=== PATIENT | female | born 1985 | race Caucasian/White ===

== ENCOUNTER 2016-07-29 02:54 | Emergency (ER) | payer OTHER ==
[2016-07-29 03:00] VITALS: RESP 18; TEMP 97.7
[2016-07-29] MEDS ORDERED: ONDANSETRON 4 MG/2 ML VIAL IVP STA (05:00)
--- NOTE | 2016-07-29 06:08 | ED ---
Alcohol HPI - General Chief Complaint: Alcohol Stated Complaint: ETOH Time Seen by Provider: 07/29/16 03:00 Source: patient Mode of arrival: EMS Limitations: altered mental status - History of Present Illness Initial Comments: This patient is a 30-year-old woman brought to be evaluated after she passed out at a bar. The patient's does appear intoxicated and only getting minimal history. She is able to deny having a fall. She denies headache, chest pain. Patient does admit vomiting MD Complaint: alcohol intoxication Associated Symptoms: vomiting - Related Data Allergies Allergy/AdvReac Type Severity Reaction Status Date / Time Unable to Assess Allergy Verified 07/29/16 03:01 Review of Systems ROS Statement: Those systems with pertinent positive or pertinent negative responses have been documented in the HPI. ROS Other: All systems not noted in ROS Statement are negative. Limitations: ROS unobtainable due to patients medical condition Respiratory: Denies: dyspnea Cardiovascular: Denies: chest pain Gastrointestinal: Reports: vomiting Musculoskeletal: Denies: back pain Neurological: Denies: headache Past Medical History Past Medical History: Unable to Obtain History of Any Multi-Drug Resistant Organisms: Unobtainable Past Surgical History: Unable to Obtain Past Psychological History: Unable to Obtain Smoking Status: Current every day smoker Past Alcohol Use History: Abuse Past Drug Use History: None Reported General Exam Limitations: altered mental status General appearance: appears intoxicated Head exam: Present: atraumatic, normocephalic, normal inspection Eye exam: Present: normal appearance. Absent: scleral icterus, conjunctival injection Neck exam: Present: normal inspection, full ROM. Absent: tenderness, meningismus Respiratory exam: Present: normal lung sounds bilaterally. Absent: respiratory distress, wheezes, rales, rhonchi, stridor Cardiovascular Exam: Present: regular rate, normal rhythm, normal heart sounds. Absent: systolic murmur, diastolic murmur, rubs, gallop GI/Abdominal exam: Present: soft. Absent: distended, tenderness, guarding, rebound, mass Extremities exam: Present: normal inspection, normal capillary refill. Absent: pedal edema, calf tenderness Back exam: Present: normal inspection. Absent: CVA tenderness (R), CVA tenderness (L) Neurological exam: Present: alert, reflexes normal. Absent: motor sensory deficit Skin exam: Present: warm, dry, intact, normal color. Absent: rash Course Vital Signs 07/29/16 07/29/16 02:55 09:42 Temperature 97.7 F Pulse Rate 94 99 Respiratory 18 18 Rate Blood Pressure 129/83 153/85 O2 Sat by Pulse 97 100 Oximetry Disposition Clinical Impression: Alcoholic intoxication Disposition: HOME SELF-CARE Condition: Good Instructions: Alcohol Intoxication (ED) Referrals: None,Stated [Primary Care Provider] - 1-2 days
[2016-07-29 09:43] VITALS: BP 153/85; PULSE 99
== END 2016-07-29 09:43 | disposition home or self-care (01) ==
LOC: EC 02:54
DX: F10.129 Alcohol abuse with intoxication, unspecified (principal); F17.200 Nicotine dependence, unspecified, uncomplicated
CPT/HCPCS: 99284; 96374; J2405

== ENCOUNTER → 2016-11-21 | Outpatient (CLI) | payer OTHER ==
--- NOTE | 2016-11-21 10:57 | MR ---
EXAMINATION TYPE: MR lumbar spine wo con DATE OF EXAM: 11/21/2016 COMPARISON: MRI lumbar spine August 23, 2012. HISTORY: Lumbago per order. Center and right-sided back pain with Right-sided buttocks and thigh pain per patient. TECHNIQUE: Multiplanar, multisequence imaging of the lumbar spine is performed without IV contrast. FINDINGS: Sagittal images of the lumbar spine redemonstrate multilevel Schmorl nodes. Alignment is sa tisfactory. Multilevel disc desiccation with mild multilevel disc space narrowing is redemonstrated. No significant new posterior disc herniations are seen on sagittal images. The conus medullaris remai ns normal in position and signal ending at superior L1 level. The bone marrow signal intensity is ov erall heterogeneous. There is mild multilevel anterior spurring redemonstrated. Axial images at the T12-L1 level shows mild broad disc bulge mildly effacing anterior thecal sac on a xial image 28. Bilateral neural foramina are patent. No significant change from prior study is seen. Axial images at L1-L2 level show moderate broad disc bulge effacing anterior thecal sac and axial elissa ge 23. Bilateral neural foramina remain patent. No significant change from prior study is seen. Axial images at L2-L3 level show broad disc bulge with right foraminal/lateral paracentral disc protr usion component on axial image 18. There is effacement of the anterior thecal sac. There is mild to m oderate right-sided anterior inferior neural foraminal narrowing at this level identified. Axial images at L3-L4 level show broad disc bulge but spinal canal is preserved and bilateral neural foramina are patent. Axial images at L4-L5 level show broad disc bulge with right lateral disc protrusion component on axi al image 8. There is moderate right-sided inferior neural foraminal narrowing. Left-sided neural fora men is patent. No significant change from prior study is seen. Spinal canal is preserved. Axial images at L5-S1 level are felt within normal limits. There is prominent renal pelvises bilaterally without calyceal dilatation suggesting extrarenal pelvi ses, right more prominent than left. IMPRESSION: Multilevel degenerative changes in the lumbar spine as detailed above with some progressi on in findings from 2013 MRI noted.
== END | disposition home or self-care (01) ==
LOC: RADMRIMAIN 09:54
PROVIDERS: ATTEND Nurse Practitioner Acute Care
DX: M47.816 Spondylosis without myelopathy or radiculopathy, lumbar region (principal)
CPT/HCPCS: 72148

== ENCOUNTER → 2021-01-11 | Outpatient (CLI) | payer OTHER ==
--- NOTE | 2021-01-11 14:00 | NM ---
EXAMINATION TYPE: NM bone 3 phase DATE OF EXAM: 01/11/2021 COMPARISON: AP pelvis 12/23/2020 HISTORY: T84.84X, Z66.92 Triple phase bone scintigraphy was performed following the injection of 25.2 mCi Tc 99m MDP. Immedia te images and 5 hours post injection images acquired. FINDINGS: Blood flow and blood pool activity show photopenic areas consistent with patient's hip arthroplasties . Delayed imaging also shows photopenic areas corresponding to patient's hip prosthetics. Soft tissue uptake is normal. There is uptake noted in the mid lumbar spine which is bandlike. IMPRESSION: Postop changes. Possible osteoporotic compression fracture L3 region.
[2021-01-11 15:40] LABS: Basophils # (A) 0.1 k/uL (0-0.2); Basophils % (A) 1 %; Eosinophils # (A) 0.1 k/uL (0-0.7); Eosinophils % (A) 1 %; HCT 44.6 % (34.0-46.0); HGB 14.4 gm/dL (11.4-16.0); Lymphocytes # (A) 3.5 k/uL (1.0-4.8); Lymphocytes % (A) 39 %; MCHC 32.3 g/dL (31.0-37.0); MCV 99.4 fL (80.0-100.0); Mean Platelet Volume 7.7; Monocytes # (A) 0.8 k/uL (0-1.0); Monocytes % (A) 9 %; Neutrophils # (A) 4.2 k/uL (1.3-7.7); Neutrophils % (A) 46 %; Platelet Count 343 k/uL (150-450); RBC 4.49 m/uL (3.80-5.40); RDW 11.8 % (11.5-15.5)
[2021-01-11 19:11] LABS: Erythrocyte Sedimentation Rate 2 mm/hr (0-20)
== END | disposition home or self-care (01) ==
LOC: RADNMMAIN 07:42
PROVIDERS: ATTEND Orthopaedic Surgery
DX: T84.84XA Pain due to internal orthopedic prosthetic devices, implants and grafts, initial encounter (principal); Z96.649 Presence of unspecified artificial hip joint
CPT/HCPCS: 85652; 85025; 86140; 78315; A9503

== ENCOUNTER → 2023-02-28 | Outpatient (CLI) | payer OTHER ==
--- NOTE | 2023-03-01 22:35 | MM ---
Reason for Exam: Screening (asymptomatic). Patient History: Menarche at age 16. First Full-Term at age 17. Premenopausal. Currently using Hormonal Contraceptives, starting at age 30. Risk Values: Elle 5 year model risk: 0.3%. NCI Lifetime model risk: 6.8%. Tissue Density: The breast tissue is heterogeneously dense. This may lower the sensitivity of mammography. Findings: Analyzed By CAD. On the right, there is an area of subareolar asymmetric density on the cc view that may represent superimposition shadow but further evaluation is recommended. On the left, in the upper outer quadrant, there are grouped microcalcifications for which further magnification views are recommended. On the left, MLO view located centrally and at a posterior depth, there is an asymmetric density for which further evaluation is recommended. Otherwise, no other discrete abnormality is seen. Overall Assessment: Incomplete: need additional imaging evaluation, BI-RAD 0 Management: Special View Mammogram of both breasts. Diagnostic Breast Ultrasound of both breasts. 1. Additional views right breast to include spot 3-D CC, 3-D CC rolled, and 3-D lateral views. 2. Additional views left breast to include mag CC, mag ML, and 3-D ML views of the upper outer quadrant calcifications. 3. Additional views left breast include spot 3-D MLO for the posterior central asymmetric density. 4. Targeted ultrasound of either breast for any persisting abnormality. . [facility] will attempt to contact patient to return for supplemental views and ultrasound if indicated. Electronically signed and approved by: Nadya Rich M.D. Radiologist
== END | disposition home or self-care (01) ==
LOC: RADMAMWWP 06:58
PROVIDERS: ATTEND Obstetrics & Gynecology
DX: Z12.31 Encounter for screening mammogram for malignant neoplasm of breast (principal)
CPT/HCPCS: 77067

== ENCOUNTER → 2023-04-12 | Outpatient (CLI) | payer OTHER ==
--- NOTE | 2023-04-12 11:25 | MM ---
Reason for Exam: Additional evaluation requested from abnormal screening. Last screening mammogram was performed 2 month(s) ago. Patient History: Menarche at age 16. First Full-Term at age 17. Premenopausal. Patient has history of breast feeding. Currently using Hormonal Contraceptives, starting at age 30. Last menstrual period: 03/28/2023 Risk Values: Elle 5 year model risk: 0.3%. NCI Lifetime model risk: 6.8%. Prior Study Comparison: 02/28/2023 Bilateral MG screening mammo w CAD, [facility]. Tissue Density: The breast tissue is heterogeneously dense. This may lower the sensitivity of mammography. Findings: Analyzed By CAD. Right: The questioned subareolar asymmetric density does not persist on additional views. Findings compatible with superimposition shadow. Left: The 2:00 grouped left breast microcalcifications at a middle depth seen to be comprised of punctate as well as partially layering calcifications on the true lateral view. This favors a benign etiology. Six-month follow-up recommended. Overall Assessment: Probably benign, BI-RAD 3 Management: Diagnostic Mammogram of the left breast in 6 months. . Results were given to the patient verbally at the time of exam. Patient should continue monthly self-breast exams. A clinical breast exam by your physician is recommended on an annual basis. This exam should not preclude additional follow-up of suspicious palpable abnormalities. Note on Elle scores and lifetime risk: 1. A Elle score greater than 3% is considered moderate risk. If this is the case, consider specialist referral to assess eligibility for a risk reducing agent. 2. If overall lifetime risk for the development of breast cancer is 20% or higher, the patient may qualify for future screening with alternating mammogram and breast MRI. Electronically signed and approved by: Nadya Rich M.D. Radiologist
== END | disposition home or self-care (01) ==
LOC: RADMAMWWP 10:20
PROVIDERS: ATTEND Obstetrics & Gynecology
DX: R92.333 Mammographic heterogeneous density, bilateral breasts (principal)
CPT/HCPCS: 77066; G0279; 77062

== ENCOUNTER 2024-01-19 18:23 | Inpatient (IN) | payer BC, OTHER ==
[2024-01-19] MEDS ORDERED: METHYLERGONOVINE 0.2 MG/ML 1 ML AMP IM PRN (19:09)
[2024-01-19] MEDS ORDERED: CARBOPROST TROMETHAMINE 250 MCG/ML 1 ML AMP IM PRN (19:09)
[2024-01-19] MEDS ORDERED: TRANEXAMIC 1,000 MG/100ML-NACL 1,000 MG in EMPTY BAG 1 BAG IV PRN (19:09)
[2024-01-19] MEDS ORDERED: miSOPROStoL 200 MCG TAB PO PRN (19:09)
[2024-01-19] MEDS ORDERED: OXYTOCIN 10 UNIT/ML 1 ML VIAL IM PRN (19:09)
[2024-01-19] MEDS: LACTATED RINGERS 1,000 ML IV ONE (19:26)
[2024-01-19] MEDS: CITRIC ACID-SODIUM CITRATE 15 ML CUP PO ONE (19:29)
[2024-01-19 19:45] LABS: ALT 14 U/L (4-34); AST 32 U/L (14-36); African American GFR (CKD) >90 (>60 ml/min/1.73 sqM); Blood Urea Nitrogen 10 mg/dL (7-17); LDH 234 U/L (120-246); Non-African American GFR(CKD) >90 (>60 ml/min/1.73 sqM); Uric Acid 4.6 mg/dL (3.7-7.4)
[2024-01-19 19:55] LABS: Basophils # (A) 0.1 k/uL (0-0.2); Basophils % (A) 1 %; Eosinophils % (A) 1 %; HCT 40.1 % (34.0-46.0); HGB 12.9 gm/dL (11.4-16.0); Lymphocytes # (A) 3.3 k/uL (1.0-4.8); Lymphocytes % (A) 37 %; MCH 28.1 pg (25.0-35.0); MCV 87.6 fL (80.0-100.0); Mean Platelet Volume 9.6; Monocytes # (A) 0.7 k/uL (0-1.0); Monocytes % (A) 8 %; Neutrophils # (A) 4.7 k/uL (1.3-7.7); Neutrophils % (A) 52 %; Platelet Count 426 k/uL (150-450); RBC 4.58 m/uL (3.80-5.40); RDW 15.1 % (11.5-15.5)
[2024-01-19] MEDS ORDERED: MORPHINE SULFATE (PF) 0.3 MG/0.3 ML SYR ONE (19:56)
[2024-01-19] MEDS ORDERED: NALBUPHINE 10 MG/ML (10 ML MDV) ONE (19:56)
[2024-01-19] MEDS ORDERED: KETOROLAC 15 MG/ML 1 ML VIAL ONE (19:56)
[2024-01-19] MEDS ORDERED: OXYTOCIN 30 UNITS/500 ML NS BAG IV ONE (19:56)
[2024-01-19] MEDS ORDERED: ONDANSETRON 4 MG/2 ML VIAL ONE (19:56)
[2024-01-19 19:58] LABS: Creatinine,Urine Random 86.8 mg/dL; Protein/Creatinine Ratio,Urine 0.196
[2024-01-19 20:06] LABS: Appearance,Urine Clear (Clear); Bilirubin,Urine Negative (Negative); Blood,Urine Negative (Negative); Color,Urine Light Yellow; Glucose,Urine (UA) Negative (Negative); Ketones,Urine Negative (Negative); Leukocyte Esterase,Urine Negative (Negative); Nitrite,Urine Negative (Negative); PH, Urine 6.5 (5.0-8.0); Protein,Urine Negative (Negative); Specific Gravity,Urine 1.016 (1.001-1.035); Urobilinogen,Urine <2.0 mg/dL (<2.0)
[2024-01-19] MEDS ORDERED: diphenhydrAMINE 50 MG CAP PO PRN (21:37)
[2024-01-19] MEDS ORDERED: METOCLOPRAMIDE 5 MG/ML 2 ML VIAL IVP PRN (21:37)
[2024-01-19] MEDS ORDERED: diphenhydrAMINE 25 MG CAP PO PRN (21:37)
[2024-01-19] MEDS ORDERED: NALOXONE 0.4 MG/ML 1 ML VIAL IV PRN ×2 (21:37→23:19)
[2024-01-19] MEDS ORDERED: ONDANSETRON 4 MG/2 ML VIAL IVP PRN (21:37)
[2024-01-19] MEDS ORDERED: ZOLPIDEM 5 MG TAB PO PRN (21:37)
[2024-01-19] MEDS ORDERED: diphenhydrAMINE 50 MG/ML 1 ML VIAL IVP PRN ×2 (21:37)
[2024-01-19] MEDS: OXYTOCIN 30 UNITS/500 ML NS 30 UNIT in SALINE 1 500ML.BAG IV SCH (22:15)
[2024-01-19] MEDS: LACTATED RINGERS 1,000 ML IV SCH (23:11)
[2024-01-19] MEDS: ACETAMINOPHEN TAB 500 MG TAB PO SCH (23:30)
[2024-01-20] MEDS: KETOROLAC 15 MG/ML 1 ML VIAL IVP SCH (03:00)
[2024-01-20] MEDS: MEASLES-MUMPS-RUBELLA VACC/PF 12,500 UNIT/0.5 ML VIAL SQ ONE (04:30)
[2024-01-20 06:41] LABS: Basophils # (A) 0.1 k/uL (0-0.2); Basophils % (A) 1 %; Eosinophils # (A) 0.1 k/uL (0-0.7); Eosinophils % (A) 1 %; HCT 35.2 % (34.0-46.0); HGB 11.4 gm/dL (11.4-16.0); Lymphocytes # (A) 3.4 k/uL (1.0-4.8); Lymphocytes % (A) 27 %; MCH 28.4 pg (25.0-35.0); MCHC 32.3 g/dL (31.0-37.0); Mean Platelet Volume 9.9; Monocytes % (A) 8 %; Neutrophils # (A) 7.8 k/uL (1.3-7.7); Neutrophils % (A) 62 %; Platelet Count 365 k/uL (150-450); RDW 15.3 % (11.5-15.5); WBC 12.6 k/uL (3.8-10.6)
--- NOTE | 2024-01-20 09:01 | P.HPOB ---
History of Present Illness H&P Date: 01/19/24 Chief Complaint: SROM 38-year-old presents at 39 weeks and 2 days with spontaneous rupture of membranes. She is a previous section and plans a repeat. Her blood pressures are elevated upon admission so we will run pre-eclampsia labs. Review of Systems All systems: negative Constitutional: Denies chills, Denies fever Eyes: denies blurred vision, denies pain Ears, nose, mouth and throat: Denies headache, Denies sore throat Cardiovascular: Denies chest pain, Denies shortness of breath Respiratory: Denies cough Gastrointestinal: Denies abdominal pain, Denies diarrhea, Denies nausea, Denies vomiting Genitourinary: Denies dysuria, Denies hematuria Musculoskeletal: Denies myalgias Integumentary: Denies pruritus, Denies rash Neurological: Denies numbness, Denies weakness Psychiatric: Denies anxiety, Denies depression Endocrine: Denies fatigue, Denies weight change Past Medical History Past Medical History: Unable to Obtain Additional Past Medical History / Comment(s): autoimmune hemolitic anemia, immune thrombocytopenia, interstitial\l lung disease, osteronecrosis, leg perthes disease, chronic arrythmia, RA History of Any Multi-Drug Resistant Organisms: None Reported Past Surgical History: Section, Cholecystectomy Additional Past Surgical History / Comment(s): spleenectomy, glynn hip replacement, D&C, lung biopsies and chest tube, Past Anesthesia/Blood Transfusion Reactions: No Reported Reaction Past Psychological History: ADD/ADHD Smoking Status: Former smoker, Never smoker Past Alcohol Use History: Abuse Past Drug Use History: None Reported - Past Family History Mother Family Medical History: No Reported History Additional Family Medical History / Comment(s): pt was adopted, unknown family hx Medications and Allergies Home Medications Medication Instructions Recorded Confirmed Type No Known Home Medications 01/19/24 01/19/24 History Allergies Allergy/AdvReac Type Severity Reaction Status Date / Time cyclophosphamide Allergy Dyspnea Verified 01/19/24 18:39 [From Cytoxan] Exam Osteopathic Statement: *. No significant issues noted on an osteopathic structural exam other than those noted in the History and Physical/Consult. Vital Signs Temp Pulse Resp BP Pulse Ox 01/20/24 04:13 97 01/20/24 04:00 98.4 F 66 16 152/98 97 01/20/24 02:19 17 01/20/24 00:19 17 97 01/20/24 00:05 99.1 F 82 17 142/85 97 01/19/24 23:19 87 17 97 01/19/24 22:48 98.4 F 84 17 146/90 84 L 01/19/24 22:33 74 17 143/87 97 01/19/24 22:18 68 17 154/84 96 01/19/24 22:03 97.8 F 17 144/84 97 01/19/24 21:48 81 17 158/88 98 01/19/24 21:37 97.9 F 90 18 164/105 98 01/19/24 21:33 73 17 128/86 01/19/24 21:18 77 17 132/88 97 01/19/24 21:03 78 17 129/87 98 01/19/24 20:48 97.6 F 83 17 142/85 97 01/19/24 19:14 97.4 F L 86 17 160/105 100 Intake and Output 01/19/24 01/20/24 01/20/24 22:59 06:59 14:59 Intake Total 900 Output Total 806 500 Balance 94 -500 Intake: IV 900 Output: Urine 100 500 Uretheral (Blank) 100 Output, Quantitative 706 Blood Loss Other: Voiding Method Indwelling Catheter Indwelling Catheter Weight 78.018 kg Heart: Regular rate and rhythm Lungs: Clear to auscultation bilaterally Abdomen: Soft, nontender Extremities: Negative Homans sign Results Result Diagrams: 01/20/24 05:36 01/19/24 19:25 Abnormal Lab Results - Last 24 Hours (Table) 01/19/24 01/20/24 Range/Units 19:25 05:36 WBC 12.6 H (3.8-10.6) k/uL Neutrophils # 7.8 H (1.3-7.7) k/uL Creatinine 0.48 L (0.52-1.04) mg/dL Assessment and Plan (1) Spontaneous rupture of amniotic membranes Current Visit: Yes Status: Acute Code(s): [id number] - SNOMED Code(s): 137524272 (2) Previous section Current Visit: Yes Status: Acute Code(s): Z98.891 - HISTORY OF UTERINE SCAR FROM PREVIOUS SURGERY SNOMED Code(s): 428518187 (3) Gestational hypertension Current Visit: Yes Status: Acute Code(s): O13.9 - GESTATIONAL HTN W/O SIGNIFICANT PROTEINURIA, UNSP TRIMESTER SNOMED Code(s): 55814642 Plan: 1. repeat low transverse 2. pre-eclampsia workup
--- NOTE | 2024-01-20 09:04 | P.OP ---
Date of Procedure: 01/19/24 Preoperative Diagnosis: 1. SROM 2. previous 3. 39 weeks gestation 4. gestational hypertension Postoperative Diagnosis: 1. SROM 2. previous 3. 39 weeks gestation 4. gestational hypertension 5. macrosomia Procedure(s) Performed: repeat low transverse Anesthesia: spinal Surgeon: Loly Simmons Honey Extractor #1: Deidre Miller Estimated Blood Loss (ml): 576 IV fluids (ml): 800 Urine output (ml): 200 Pathology: none sent Condition: stable Disposition: floor Operative Findings: viable male, Apgars 9,9, weight 10 pounds Description of Procedure: Patient was taken to the operating room where spinal anesthesia was found be adequate. She was prepped and draped in normal sterile fashion in dorsal supine position with a leftward tilt. Pfannenstiel skin incision was made the scalpel and carried through to the underlying layer of fascia with the scalpel. Fascia was incised in midline and carried bilaterally with the Concepcion scissors. The superior aspect of the fascial incision was grasped with Berthoud clamps elevated and the underlying rectus muscles dissected off with the Concepcion's. Attention was then turned to inferior aspect of same incision which in a similar fashion was grasped tented up and the underlying rectus muscles dissected off with the Concepcion's. The rectus muscles were the midline and the peritoneum was identified tented up and entered sharply with the scalpel. The incision was extended superiorly and inferiorly with good visualization of the bladder. The bladder blade was inserted and the vesicouterine peritoneum was incised the Metzenbaums then carried bilaterally and bladder flap created digitally. A low transverse incision was then made on the uterus with the scalpel. This was carried bilaterally and digital manner. Infant's head delivered atraumatically, nose and mouth bulb suctioned, cord clamped and cut, infant handed off to waiting nurses. Apgars 9,9, weight 10 lbs. Placenta delivered manually, intact with three-vessel cord. The uterus is exteriorized and cleared of all clots and debris. The uterine incision was closed with 0 Vicryl in a running locked fashion. Second layer of the same sutures used in imbricating fashion to obtain excellent hemostasis. Both ovaries and tubes appeared normal. The uterus was placed back into the abdomen. The muscles were reapproximated using 2-0 Vicryl in interrupted fashion. The fascia was reapproximated using 0 Vicryl in a running fashion. The subcutaneous tissues closed with 3-0 Vicryl running fashion. The skin was closed rajat. Patient tolerated the procedure well, sponge and instrument counts were correct times 2 and she was taken to the recovery room in stable condition.
--- NOTE | 2024-01-20 09:06 | P.PNOBGPC ---
Subjective - Subjective Principal diagnosis: Status post repeat low transverse postop day 1 Interval history: Patient seen and examined was morning. She denies nausea, vomiting, chest pain, shortness of breath or any calf pain. She does not have any headaches or vision changes. Her preeclampsia labs were all within normal limits. She is having some higher blood pressures still today. With her gestational hypertension I will add labetalol 100 mg twice a day to her regimen. Patient reports: Reports appetite normal, Reports voiding normally, Reports pain well controlled, Reports ambulating normally Objective - Vital Signs Latest vital signs: Vital Signs Temp Pulse Resp BP Pulse Ox 01/20/24 04:13 97 01/20/24 04:00 98.4 F 66 16 152/98 97 01/20/24 02:19 17 01/20/24 00:19 17 97 01/20/24 00:05 99.1 F 82 17 142/85 97 01/19/24 23:19 87 17 97 01/19/24 22:48 98.4 F 84 17 146/90 84 L 01/19/24 22:33 74 17 143/87 97 01/19/24 22:18 68 17 154/84 96 01/19/24 22:03 97.8 F 17 144/84 97 01/19/24 21:48 81 17 158/88 98 01/19/24 21:37 97.9 F 90 18 164/105 98 01/19/24 21:33 73 17 128/86 01/19/24 21:18 77 17 132/88 97 01/19/24 21:03 78 17 129/87 98 01/19/24 20:48 97.6 F 83 17 142/85 97 01/19/24 19:14 97.4 F L 86 17 160/105 100 Intake and Output 01/19/24 01/20/24 01/20/24 22:59 06:59 14:59 Intake Total 900 Output Total 806 500 Balance 94 -500 Intake: IV 900 Output: Urine 100 500 Uretheral (Blank) 100 Output, Quantitative 706 Blood Loss Other: Voiding Method Indwelling Catheter Indwelling Catheter Weight 78.018 kg - Exam Lungs: bilateral: normal Chest: Normal S1, Normal S2 Extremities: Present: normal Abdomen: Present: normal appearance, soft. Absent: distention, tenderness Incision: Present: normal, dry, intact Uterus: Present: normal, firm - Labs Labs: Abnormal Lab Results - Last 24 Hours (Table) 01/19/24 01/20/24 Range/Units 19:25 05:36 WBC 12.6 H (3.8-10.6) k/uL Neutrophils # 7.8 H (1.3-7.7) k/uL Creatinine 0.48 L (0.52-1.04) mg/dL Assessment and Plan (1) Spontaneous rupture of amniotic membranes Current Visit: Yes Status: Resolved Code(s): [id number] - SNOMED Code(s): 916787350 (2) Previous section Current Visit: Yes Status: Resolved Code(s): Z98.891 - HISTORY OF UTERINE SCAR FROM PREVIOUS SURGERY SNOMED Code(s): 562455120 (3) Gestational hypertension Current Visit: Yes Status: Resolved Code(s): O13.9 - GESTATIONAL HTN W/O S IGNIFICANT PROTEINURIA, UNSP TRIMESTER SNOMED Code(s): 51851430 Plan: 1. labetalol 100mg bid 2. motrin/tylenol.
[2024-01-20] MEDS: SENNOSIDES-DOCUSATE SODIUM 1 EACH TAB PO SCH (09:31)
[2024-01-20] MEDS: LABETALOL 100 MG TAB PO SCH (09:33)
--- NOTE | 2024-01-20 09:45 | P.PN ---
Progress Note - Text Progress Note Date: 01/20/24 Patient was seen and examined side. Received intrathecal morphine 300 mcg , for postop pain control as per surgeon request. Today postop day 1 status post C- section. Today complaining her pain levels 2-3 out of 10 in severity. Able to ambulate without any difficulty. Denied any weakness. Mild itching. Physical exam: Vitals : stable vitals, afebrile Assessment and plan: S/p postop day 1 - Continue oral pain medications as needed as per primary care. Please contact anesthesia as needed.
[2024-01-20] MEDS: LACTATED RINGERS 1,000 ML IV SCH (12:08)
[2024-01-20] MEDS: IBUPROFEN 800 MG TAB PO SCH (20:11)
[2024-01-22] MEDS: SIMETHICONE 80 MG CHEWABLE PO PRN (02:25)
--- NOTE | 2024-01-22 08:08 | P.PNOBGPC ---
Subjective - Subjective Principal diagnosis: Status post repeat low transverse postop day 3 Interval history: Patient seen and examined. Denies nausea, vomiting, chest pain, shortness of breath or calf pain. She still says she is bloated and having some swelling. I encouraged her to ambulate and hydrate. Patient reports: Reports appetite normal, Reports voiding normally, Reports pain well controlled, Reports ambulating normally Objective - Vital Signs Latest vital signs: Vital Signs Temp Pulse Resp BP Pulse Ox 01/21/24 23:07 98.2 F 66 16 156/98 98 01/21/24 22:10 135/89 01/21/24 21:17 170/89 01/21/24 15:52 98.6 F 71 16 150/98 Intake and Output 01/21/24 01/22/24 01/22/24 22:59 06:59 14:59 Intake Total 600 Balance 600 Intake: Oral 600 - Exam Lungs: bilateral: normal Chest: Normal S1, Normal S2 Extremities: Present: normal Abdomen: Present: normal appearance, soft. Absent: distention, tenderness Incision: Present: normal, dry, intact Uterus: Present: normal, firm Assessment and Plan (1) Spontaneous rupture of amniotic membranes Current Visit: Yes Status: Resolved Code(s): [id number] - SNOMED Code(s): 025090183 (2) Previous section Current Visit: Yes Status: Resolved Code(s): Z98.891 - HISTORY OF UTERINE SCAR FROM PREVIOUS SURGERY SNOMED Code(s): 168522149 (3) Gestational hypertension Current Visit: Yes Status: Resolved Code(s): O13.9 - GESTATIONAL HTN W/O SIGNIFICANT PROTEINURIA, UNSP TRIMESTER SNOMED Code(s): 39503572 Plan: 1. Continue labetalol 100 twice a day 2. Increase ambulation 3. Oral hydration and regular diet 4. Oral pain medication
--- NOTE | 2024-01-23 07:47 | P.DS ---
Providers Date of admission: 01/19/24 18:57 Expected date of discharge: 01/23/24 Attending physician: Loly Simmons Primary care physician: Stated None - Discharge Diagnosis(es) (1) Spontaneous rupture of amniotic membranes Current Visit: Yes Status: Resolved (2) Previous section Current Visit: Yes Status: Resolved (3) Gestational hypertension Current Visit: Yes Status: Resolved Hospital Course: Patient presented with spontaneous rupture membranes. She underwent a repeat low transverse . Postoperative course She started to have some higher blood pressures. She was placed on labetalol 100 mg twice a day. She denies nausea, vomiting, chest pain, shortness of breath or calf pain. She is passing flatus and bowel movements, ambulating and voiding without difficulty. Patient will be discharged home postoperative day #4 in stable condition to follow-up with me in 1-2 weeks. Plan - Discharge Summary New Discharge Prescriptions: New Ibuprofen [Motrin] 800 mg PO Q8HR #30 tab Labetalol [Trandate] 100 mg PO BID #60 tab Acetaminophen Tab [Tylenol] 1,000 mg PO Q8HR #30 tab Discharge Medication List Acetaminophen Tab [Tylenol] 1,000 mg PO Q8HR #30 tab 01/23/24 [Rx] Ibuprofen [Motrin] 800 mg PO Q8HR #30 tab 01/23/24 [Rx] Labetalol [Trandate] 100 mg PO BID #60 tab 01/23/24 [Rx] Follow up Appointment(s)/Referral(s): Loly Simmons DO [Doctor of Osteopathic Medicine] - 1 Week Discharge Disposition: HOME SELF-CARE
[2024-01-23 15:50] VITALS: BP 128/87; PULSE 76; RESP 18; TEMP 99.5
== END 2024-01-23 19:00 | disposition home or self-care (01) | DRG 788 ==
LOC: FBPOP 18:23 → 4FBP 18:57
PROVIDERS: ADMIT Obstetrics & Gynecology; ATTEND Obstetrics & Gynecology
PROC: 10D00Z1 Extraction of Products of Conception, Low, Open Approach (ICD-10-PCS; principal; 2024-01-20)
DX: O13.4 Gestational [pregnancy-induced] hypertension without significant proteinuria, complicating childbirth (principal); O12.14 Gestational proteinuria, complicating childbirth; O34.211 Maternal care for low transverse scar from previous cesarean delivery; O36.63X0 Maternal care for excessive fetal growth, third trimester, not applicable or unspecified; Z37.0 Single live birth; Z3A.39 39 weeks gestation of pregnancy; Z87.891 Personal history of nicotine dependence; Z90.81 Acquired absence of spleen; Z96.649 Presence of unspecified artificial hip joint
CPT/HCPCS: 59025; 81003; 82565; 82570; 83615; 84112; 84156; 84450; 84460; 84520; 84550; 85025; 86850; 86900; 86901; 90707; 99213